=== PATIENT | female | born 1955 | race Caucasian/White ===

== ENCOUNTER → 2017-03-05 | Outpatient (CLI) | payer BC ==
[~2017-03-05] MED LIST: ARMOUR THYROID90 MG PO; ASPIRIN325 MG PO; NORCO 5-325 TA1 EACH PO; NORVASC5 MG PO; PROGESTERONE COMPOUN TOP
[2017-03-05 07:43] LABS: CREATININE 1.1 mg/dL (0.5-1.1)
== END | disposition disaster alternative care site (69) ==
LOC: GLAB 02-26 07:00 → GRAD 02-26 08:00 → GLAB 07:00
PROVIDERS: Internal Medicine Hematology & Oncology
DX: H53.129 Transient visual loss, unspecified eye (principal)

== ENCOUNTER 2017-07-06 01:31 | Inpatient (IN) | payer BC ==
[~2017-07-06] VITALS: Ht 165.1 cm; Wt 69.4 kg
--- NOTE | ~2017-07-06 | DS ---
PATIENT'S NAME: SHAHANA SELBY [facility] AGE: 62 Y [address] ROOM: [id number] [place], [place] [address] LOCATION: [facility] ADMIT DATE: 07/06/2017 Discharge Summary DISCHARGE DATE: 07/07/2017 FAMILY PHYSICIAN: PHYSICIAN, TREVIN ATTENDING PHYSICIAN: Josiah Sun DISCHARGE DIAGNOSES: 1. Seizure, primary. 2. Acute kidney injury, resolved. 3. Hypokalemia. 4. Right shoulder dislocation status post reduction by Dr. Garcia. 5. Antiphospholipid antibody syndrome. 6. Hyperthyroidism secondary to medications. 7. Mild thrombocytopenia. REASON FOR ADMISSION: Apparent seizure. LABORATORY DATA: Her initial lab showed normal white count, hemoglobin, and slightly reduced platelets. Her initial platelets were 125, dropped to 119, but never clinically significant. Her initial renal function showed a creatinine of 1.2 and BUN 21, with GFR of 61, with fluids and support that came up to 69. Sedimentation rate was 16, but CRP was elevated at 2.1. Urine was positive for opiates and I cannot tell whether that was done before or after she received opiates here. Looks like it was after, which makes sense because they gave her opiates for pain. Urine was otherwise benign. Her potassium dropped from 3.9-3.4 today, so we will have her eat a banana a day and make sure she follows up with her primary care on the hypokalemia. RADIOLOGY: Right shoulder showed a reverse Hill-Sachs fracture and degenerative changes. There is apparently posterior subluxation. The fracture did include displaced bone fragment and was apparently consistent with seizure per Dr. Sunshine. Brain and neck MRA were benign and MRI of the brain just showed changes consistent with her age, there were no acute findings. CT was done initially and showed that her C-spine was without fracture. She did have some degenerative joint disease C6 and C7. CT of the brain also showed no intracranial pathology or fracture. HOSPITAL COURSE: She was markedly improved in her discomfort when Dr. Garcia reduced her dislocation, but she continues to require some pain medication. She will be discharged today on medications per nursing med recon form. We will write a special prescription for some [place] and I have strongly encouraged her to see her primary care doctor for adjustment of her [place] Thyroid medication as she is currently at least by our laboratory hyperthyroid based on her medications. She is also to follow up with Dr. Victoria and PATIENT'S NAME: SHAHANA SELBY [facility] AGE: 62 Y [address] ROOM: [id number], [place] [address] LOCATION: [facility] ADMIT DATE: 07/06/2017 Discharge Summary DISCHARGE DATE: 07/07/2017 FAMILY PHYSICIAN: PHYSICIAN, NO ATTENDING PHYSICIAN: Josiah Sun have him let her know and everybody else whether in fact she does have lupus. There was some question about this and we would like that clarify. Her diet will be ad lukas. Activity will be as tolerated and she was told specifically not to drive for three months given this seizure history. She indicated understanding as did her spouse. She has a followup appointment in seven days with Dr. Garcia to look at that shoulder and she will need followup PT, which I am sure he will arrange. Note that time on discharge process was greater than 30 minutes. BERNA LOGAN MD CCNoreen/modl /[id number] d: 07/07/172003 t: 07/08/17 1556, DISCHARGE SUMMARY
--- NOTE | ~2017-07-06 | ECHO ---
Transthoracic Echocardiography Report (TTE) Demographics Patient Name SHAHANA SELBY Date of Study 07/06/2017 Patient Number [id number] Visit Number [id number] Date of 1955 Room Number [id number] Gender Female Number Age 62 year(s) Referring Corinne Rodriguez MD Jordan Man Josselin Lezama, Physician RT,RVT,RDCS Physician Interpreting Dana Azevedo MD Sheep Boner Physician Supervising Ordering Corinne Rodriguez MD, MD/MLP Physician Nurse Stress Softball Coach Conclusions Contractility Score Summary Normal Left Ventricular contractility was noted. Summary The estimated left ventricular ejection fraction is 65-70% with normal EF,WM and internal dimensions. There is moderate aortic regurgitation by color Doppler. There is moderate aortic stenosis by the Continuity Equation. The peak velocity is 2.9 m/s, the mean gradient is 15 mmHg, and the valve area Increased RA pressures. Procedure Type of Study TTE procedure:2D Echocardiogram, M-Mode, Doppler , Color Doppler. Procedure Date Date: 07/06/2017 Start: 07:12 AM Study Location: Inpatient Portable Technical Quality: Adequate visualization Indications:CVA. Additional Indications:Murmur. Possible seizure with fall and fractured right humerus. Appropriate Use Criteria: 9 Patient Status: Routine HR: 68 bpm BP: 161/70 mmHg M-Mode/2D Measurements LV Diastolic Dimension: 4.73 cm LV Systolic Dimension: 2.46 cm LV Septum Diastolic: 1.07 cm LV PW Diastolic: 0.83 cm AO Root Dimension: 2.3 cm Cardiac Output: 5.21 l/min AV Cusp Separation: 1.3 cm EF Estimated: 65 % LVOT: 2 cm MV EPSS: 0.3 cm LVOT VTI: 24.4 cm LV Stroke volume: 76.62 ml Doppler Measurements AV Peak Velocity: 2.92 m/s MV Peak E-Wave: 0.08 m/s AV Peak Gradient: 34.11 mmHg MV Peak A-Wave: 0.14 m/s AV Mean Gradient: 15 mmHg MV E/A Ratio: 0.56 LVOT Peak Velocity: 1.24 m/s MV P1/2t: 55 msec AV P1/2t: 439 msec TR Gradient:4.75 mmHg PV Peak Velocity: 1.21 m/s Estimated RAP:10 mmHg PV Peak Gradient: 5.86 mmHg Estimated RVSP: 15 mmHg Estimated PASP: 14.75 mmHg E' Septal Velocity: 0.09 m/s A' Septal Velocity: 0.16 m/s MV E/E' Ratio: 9.7 Findings Left Ventricle Normal left ventricle size and function. Right Ventricle Normal right ventricle structure and function. Left Atrium Normal left atrial size. Right Atrium Normal right atrial size. Increased RA pressures. Mitral Valve Normal mitral valve structure and function. Aortic Valve There is moderate aortic regurgitation by color Doppler. There is mild to moderate aortic stenosis by the Continuity Equation. The peak velocity is 2.9 m/s, the mean gradient is 15 mmHg, and the valve area based on the continuity equation is 1.5 cm2, stroke volume index is 77 ml/m2. Tricuspid Valve Normal tricuspid valve structure and function. Pulmonic Valve Normal pulmonic valve structure and function. Pericardial Effusion No evidence of pericardial effusion. Miscellaneous Visualized portions of the aortic root and ascending aorta appear normal in size. Pleural Effusion No evidence of pleural effusion. Contractility Score LV regional wall motion:(0-Non visualized 1-Normal 2-Hypokinesis 3-Akinesis 4-Dyskinesis 5-Aneurysm) Signature dtt: Jolly Cortez dtd: 07/06/17 0712 Physician Self Edit
--- NOTE | ~2017-07-06 | HP ---
PATIENT'S NAME: SHAHANA SELBY [facility] AGE: 62 Y [address] ROOM: [id number] [place], [place] [address] LOCATION: [facility] ADMIT DATE: 07/06/2017 History & Physical DISCHARGE DATE: FAMILY PHYSICIAN: PHYSICIAN, TREVIN ATTENDING PHYSICIAN: MAYANK URBANO DATE OF SERVICE: CHIEF COMPLAINT: Confusion and right shoulder pain. HISTORY OF PRESENT ILLNESS: This is a 62-year-old female who is a poor historian. I got the story directly from the patient and also her , who is somewhat also a poor historian. The story is that for the last 8 years, the patient has been told by some medical provider in [facility] probably was a neurologist, but neither the patient nor the is sure. She was told by the neurologist in the [facility] that the patient had multiple episodes of transient ischemic attack in the past on and off and there was a concern about antiphospholipid syndrome as well as systemic lupus erythematosus. However, the patient is not sure if they have ever been done any testing to confirm, but most likely, they had given that she has been told that she has these 2 problem for the last 8 years. The patient was also seen by our die reamer, Dr. Dana Dennis, for the concern for lupus and antiphospholipid syndrome, where the patient says that most likely it was confirmed, but she is not really sure and eventually the patient was referred to a metal sponge making machine operator for lupus management according to the patient. However, the patient is not reliable, neither the is reliable given that neither one of them really know the medical history that well. The story is that this morning around 1:00 a.m., the patient woke up with a right shoulder pain. She denies any recent fall or any recent trauma in the past. Due to the right shoulder pain, the patient could barely move. When she woke up at 1:00 a.m. in the morning, she also noticed that she had bitten her lips and she was bleeding slightly from the bitten lip. Eventually, she was able to get up out of the bed and walk to her who was sleeping outside in a tent given that the air conditioning at home is broken. When she reached her , her found her to be confused, where the described as the patient was answering questions, but was not answering the right answers, but the denies seeing any facial droop or any slurred speech or any muscle weakness except that the patient complained of right shoulder pain. The patient also remembered that she also had a urinary incontinence after she woke up. Because of this, the patient's brought the patient over here for evaluation. PATIENT'S NAME: HSAHANA SELBY [facility] AGE: 62 Y [address] ROOM: [place] [address] LOCATION: [facility] ADMIT DATE: 07/06/2017 History & Physical DISCHARGE DATE: FAMILY PHYSICIAN: TREVIN MELO ATTENDING PHYSICIAN: MAYANK URBANO The patient says that she has never had a seizure before and she also denies any family history of seizure. She strongly denies any trauma to the right shoulder or any recent fall. The patient was never on Coumadin; however, there was a discussion between her primary metal sponge making machine operator, Dr. iVctoria, in [place] about using Coumadin versus Plavix for her anti-phospholipid syndrome according to the patient; however, eventually did decide to stay with the Plavix, but the patient has not been taking Plavix for a while already. The patient has never had DVT or pulmonary embolism and she also denies any miscarriage when she was younger and she also denies any family history of clotting disorder. REVIEW OF SYSTEMS: As mentioned in the history of present illness. All other systems were reviewed and were negative except those mentioned in history of present illness. PAST MEDICAL HISTORY: 1. History of TIA, first time was 8 years ago and she subsequently had several times over the next few years according to the patient. 2. Hypothyroidism. 3. Probably, has history of anti-phospholipid syndrome and systemic lupus erythematosus according to the patient. ALLERGIES: NONE. HOME MEDICATIONS: The patient does not remember which medications she takes, but she states she takes aspirin and something else. Will need to be clarified with the patient's pharmacy for the home medication list. SOCIAL HISTORY: The patient is a social alcohol drinker, but she denies any alcohol abuse or any alcohol withdrawal. The patient denies any cigarette or illegal drug use. FAMILY HISTORY: Father has COPD and the mother has some kind of back problem, but she does not remember all the details. No family history of pulmonary embolism or DVT or any clotting disorder in the family. PAST SURGICAL HISTORY: Status post right knee surgery in the past. PHYSICAL EXAMINATION: VITAL SIGNS: At the time of evaluation, temperature 98.1, heart rate 74, PATIENT'S NAME: SHAHANA SELBY [facility] AGE: 62 Y [address] ROOM: [id number], [place] [address] LOCATION: [facility] ADMIT DATE: 07/06/2017 History & Physical DISCHARGE DATE: FAMILY PHYSICIAN: PHYSICIAN, NO ATTENDING PHYSICIAN: MAYANK URBANO respirations 96, blood pressure 161/70, saturation 100% on room air. GENERAL APPEARANCE: Alert and oriented x3. Currently, in no acute distress. HEENT: Pupils equally round and reactive to light. Extraocular muscles intact. Anicteric sclerae. Nasal turbinates are normal bilaterally. Dry oral mucosa. NECK: No JVD. CARDIOVASCULAR: She has a murmur, intensity about 3, the patient states this is chronic. She was told she had a can of leaky valve in the past. Regular rate and rhythm. No rubs, no gallops. RESPIRATORY: Clear to auscultation bilaterally. No rales, no rhonchi, no wheezing, no crackles. ABDOMEN: Soft, nontender, nondistended, bowel sounds present, and no hepatosplenomegaly. EXTREMITIES: She has tenderness to palpation in the right shoulder, but there is no sensation loss or numbness or muscle weakness in terms of her right hand temp recruiter showed good temp recruiter on examination. Radial pulse is also palpable, +2 on the right upper extremity. The rest of the extremities are within normal limits. No edema in upper or lower extremities. SKIN: No ulcer, no rash, no cyanosis. NEUROLOGICAL: Grossly nonfocal except that the pronator drift could not be performed in the right upper extremity due to the right shoulder fracture. Sensation intact. Muscle strength intact in the right hand with the hand temp recruiter showed good temp recruiter, but the right shoulder elevation cannot be performed due to right hip fracture. Cranial nerves 2 through 12 are unremarkable. Finger-to- nose on the left upper extremity intact. Right upper extremity, cannot perform [id number] due to the fracture on the right shoulder. Vibration and proprioception intact. No tongue deviation upon protrusion. No slurred speech. No facial droop. Visual rebollar intact. Gait not assessed due to fall risk. LABORATORY DATA: CPK 65, troponin less than 0.04. White blood cells 9.2, hemoglobin 13.6, hematocrit 39.6, platelets 145. Glucose 128, BUN 21, creatinine 1.2. Sodium 138, potassium 3.3, chloride 105, CO2 26, calcium 8.7, total protein 7.0, albumin 3.9, AST 31, ALT 31, alkaline phosphatase 94, total bilirubin 0.6, magnesium 2.2. Anion gap 10.3, INR 0.99, PTT 28, GFR 49. CK-MB 1.7. Prolactin 59.8. IMAGING STUDY: CT of the brain without contrast based on the preliminary review on admission, preliminary review was read as unremarkable. CT of the cervical spine without contrast on admission, the preliminary review was read as unremarkable. PATIENT'S NAME: SHAHANA SELBY [facility] AGE: 62 Y [address] ROOM: [id number], [place] [address] LOCATION: [facility] ADMIT DATE: 07/06/2017 History & Physical DISCHARGE DATE: FAMILY PHYSICIAN: PHYSICIAN, NO ATTENDING PHYSICIAN: MAYANK URBANO X-ray of the right shoulder and the chest, the official report is pending. Please follow up. Chest x-ray based on my review, unremarkable. Please follow up with official report in the morning. ASSESSMENT AND PLAN: 1. Regarding her encephalopathy: This could be postictal confusion from possible seizure given that the patient also had urinary incontinence when she woke up. Currently, the patient is not confused. I will consult Neurology for the encephalopathy evaluation in the morning. I will give IV Ativan 2 mg q.5 minutes p.r.n. for seizure. I will also get an electroencephalogram. Further plan will depend on clinical course. We will also get a urinalysis to rule out urinary tract infection. We will also get urine drug screen. Given the patient has a questionable history of antiphospholipid syndrome as well as systemic lupus erythematosus, I will be getting the records from the primary metal sponge making machine operator, Dr. Victoria, who has all the records. Therefore, I will get her records first to see what had been done and what had been confirmed. If the diagnosis of the antiphospholipid syndrome and the systemic lupus erythematosus are not confirmed, then we can order the diagnostic testings here in our facility. Given that the patient has had multiple transient ischemic attacks in the past with confusion that she had before at home and also with presumed history of antiphospholipid syndrome, I will be getting an MRI of the brain and also MRA of the brain and neck to rule out any possibility of stroke or looking at any blockage of the artery with MRA. Further plan will depend on clinical course. 2. Regarding her acute kidney injury. Continue with IV fluids for hydration. Check her urine electrolytes. 3. Regarding her hypokalemia: We will replace with oral potassium chloride 40 mEq x1. 4. Regarding her right shoulder fracture: The patient denies any trauma and does not remember how she got this right shoulder fracture. I will be consulting Orthopedic Surgery for further evaluation. 5. Regarding her history of murmur: The patient has been told she had a murmur from before for a leaky valve. I will get a transthoracic echo to see the extent of the valvulopathy. 6. Regarding her history of hypothyroidism: We will be checking her TSH. 7. Regarding her deep vein thrombosis prophylaxis: Compression devices for possibility of orthopedic surgery to fix the right shoulder fracture. 8. Could consider also checking UPEP and SPEP for multiple myeloma if there is no clear explanation for the fracture of the right shoulder. 9. She is a full code. Time spent in care on the day of admission 55 minutes, 10 minutes was spent on PATIENT'S NAME: SHAHANA SELBY [facility] AGE: 62 Y [address] ROOM: [id number], [place] [address] LOCATION: [facility] ADMIT DATE: 07/06/2017 History & Physical DISCHARGE DATE: FAMILY PHYSICIAN: PHYSICIAN, NO ATTENDING PHYSICIAN: MAYANK URBANO chart review, and the remainder of the time was spent in interview, physical examination, and also on counseling. The counseling includes including going over the plan of care with the patient and the patient's and I answered all their questions and concerns to their satisfaction. Both the patient and her are poor historian and do not really know much about the old medical records. Therefore, further plan will depend on clinical course once we get the medical records from the primary metal sponge making machine operator's office in the morning and the patient told me that the primary metal sponge making machine operator has all the information about her medical problems. She does not have any primary care physician that she follows with, therefore she says that most of the care that she is getting it from the metal sponge making machine operator, Dr. Victoria, in [place]. Further plan will depend on clinical course. MD CHUCK CALIX/bonny /[id number] D: [id number] T: [id number] HISTORY & PHYSICAL
--- NOTE | ~2017-07-06 | NDGEN ---
PATIENT'S NAME: SHAHANA SELBY [facility] AGE: 62 Y [address] ROOM: [address] [address] LOCATION: [facility] ADMIT DATE: 07/06/2017 Neurodiagnostics DISCHARGE DATE: FAMILY PHYSICIAN: PHYSICIAN, NO ATTENDING PHYSICIAN: MAYANK URBANO PROCEDURE: ELECTROENCEPHALOGRAM DATE OF PROCEDURE: 07/06/2017 TIME: 11:16 a.m. INDICATION: Ms. Selby is a 62-year-old female patient, who in the overnight hours had a generalized seizure likely in her bed, never had a seizure before, and she likely had a bit of postictal lethargy. This EEG was done to look at the background rhythm and look for any irritability in the EEG, such as evidence for epileptiform features such as spikes or spike-wave complexes. FINDINGS: The general background rhythm in this 20-lead EEG was completely normal showing a normal sinusoidal pattern of 9-11 hertz alpha rhythm. The amplitudes reached 30-45 microvolts, which is very normal. Any time during the recording was there any irritability in the background rhythm. No spikes or abnormal wave patterns were seen and no seizures recorded. IMPRESSION: Normal EEG. MD ABELINO VIRK/bonny /[id number] dtt: 07/24/17 1632 AL JASON R. dtd: 07/07/17 0025
--- NOTE | ~2017-07-06 | CON ---
PATIENT'S NAME: SHAHANA SELBY [facility] AGE: 62 Y [address] ROOM: [id number] [place], [place] [address] LOCATION: [facility] ADMIT DATE: 07/06/2017 Consultation DISCHARGE DATE: FAMILY PHYSICIAN: PHYSICIAN, TREVIN ATTENDING PHYSICIAN: MAYANK URBANO DATE OF CONSULTATION: 07/06/2017 The patient was seen in Neurologic consultation on 07/06/2017 at 10 p.m. HISTORY OF PRESENT ILLNESS: Ms. Selby is a 62-year-old female patient who has a prior medical history of hypothyroidism. She also holds a possible history of antiphospholipid antibody syndrome. This diagnosis seems to be given in a workup number of years ago after the patient possibly was interpreted to have abnormal MRI due to some subcortical T2 prolongation as the MRIs have always been read as nonspecific white matter changes thought to be consistent more with unidentified bright objects and not necessarily associated with any pathology of demyelinating disease, stroke, or other issues. According to the patient, she possibly has a diagnosis of systemic lupus; however, she really does not know the history concerning this and by history based on her symptoms, she denies systemic joint pain, myalgias, arthralgias etc. The patient came here after apparently she had a generalized seizure while she was sleeping. She was sleeping alone last evening in her bed as her sleeping outside in the mansfielder due to the house being very warm, but she had no problem sleeping in the house. She did say that she was under a lot of stress and fatigue with her job that day and it was a bit uncomfortable in this very warm house without any air-conditioning. She went to sleep at 10 p.m., but sometime around 1 p.m., she woke up in excruciating pain, and pain in her right shoulder with potential injury to her shoulder even dislocation. She felt very achy in her body in general and tired. She also bit her lip. The patient was taken to the emergency room for evaluation for a generalized seizure and to evaluate the right shoulder pain. It was found that the patient actually had a shoulder fracture. She denied actually falling onto the ground hitting her head or anything of that sort. Make this story as somewhat odd, the CPK which usually would be elevated in generalized seizures were completely normal in the 60s; however, in the emergency room, prolactin level was drawn and it was elevated into the high 50s and then repeated again during the later part of the day and came back to normal. This is a fairly sensitive test for generalized seizure, which recently had taken place within the past 2 hours, it was properly taken at that time. I am seeing the patient currently and she is in no acute distress. She does not complain about any headache or neck pain. There is no bruising of her head. There is no bruising on her body that is obvious. Her right arm is in a mobilize device and was placed by Orthopedic Surgery presently. The patient asked exactly as PATIENT'S NAME: SHAHANA SELBY [facility] AGE: 62 Y [address] ROOM: [address] [address] LOCATION: [facility] ADMIT DATE: 07/06/2017 Consultation DISCHARGE DATE: FAMILY PHYSICIAN: PHYSICIAN, NO ATTENDING PHYSICIAN: MAYANK URBANO to why she had a seizure and we went over the possible etiologies for generalized seizures and the biggest one would be medication withdrawal. The patient absolutely denies that she is on any medications other than taking a vitamin. She may be on 1 to 2 medicines that she is not aware of it, she is somewhat of a poor historian, and seems to depend on her to know her medicines oddly. We will check with the concerning any particular medication that may have had essential nervous system potential for withdrawal; however, I went over the whole list of medications as well as alcohol that could have caused in a withdrawal seizure and she absolutely denies alcohol history or any of the medications that I mentioned. The patient currently has no complaints, but she is concerned about a potential possible surgery for her arm. Answers all questions appropriately presently. She had not been placed on any antiseizure medication, but since the first- time event, we currently get more information concerning her history and workup for her brain imaging. CURRENT MEDICATIONS: Include: 1. Thyroid replacement 1.5 g q.a.m. 2. Aspirin 325 mg daily. 3. Amlodipine 5 mg p.o. daily. ALLERGIES: NO KNOWN DRUG ALLERGIES. SOCIAL HISTORY: The patient absolutely denies any alcohol use, only on rare occasion. She denies any tobacco use. She denies any marijuana use. She denies any illicit drug use. PAST SURGICAL HISTORY: None in the past. PAST MEDICAL HISTORY: She states that she has some cognitive impairment and short-term memory loss possibly related to what she was told being antiphospholipid antibody syndrome. She apparently has not been treated with anticoagulation, has not been confirmed all the pieces of the puzzle exist that she has this true syndrome. She denies any history of deep vein thrombosis. She denies any miscarriages. Denies any history suggestive of rheumatoid arthritis or any rheumatological diseases that may be suggestive such as an SLE. SLE would not necessarily be needed for the diagnosis of antiphospholipid antibody syndrome. REVIEW OF SYSTEMS: The patient likely had a generalized seizure, quite violent, would have to be PATIENT'S NAME: SHAHANA SELBY [facility] AGE: 62 Y [address] ROOM: [id number] [address] LOCATION: [facility] ADMIT DATE: 07/06/2017 Consultation DISCHARGE DATE: FAMILY PHYSICIAN: PHYSICIAN, NO ATTENDING PHYSICIAN: MAYANK URBANO the story here that she actually either dislocated her shoulder as well as breaking as well as fracturing the humerus. She denied completely that she fell out of bed and she really does not know any more and that she just remembers waking up and being very fatigued and going out to her who is out in a camper as she was sleeping in the house due to the house having no air-conditioning. PHYSICAL EXAMINATION: GENERAL: This is a healthy-appearing female in no acute distress. VITAL SIGNS: Revealed a pulse of 77, respiration 18, blood pressure 174/76, temperature 36.8, and weight is 67.5 kg. NEUROLOGIC: Cranial nerves 2 through 12 was intact. Motor exam revealed 5/5 power in the lower extremities as well as the left upper extremity 5/5 power. Unable to test power in the right upper extremity as it is immobilized. She has normal sensory exam to light touch. She follows all commands when appropriately. [id number] testing on the left hand was completely intact. She had no visual field deficits. Her neck is supple on flexion and extension. I did not notice any bruising of the skin. I did not notice where she had bit her lip as she has stated. IMPRESSION: Ms. Selby is a 62-year-old female patient, never had a seizure before, she supposedly had an event where she woke up in excruciating pain at 1 o'clock in the morning, as well as being confused and altered mental status. She says that she was sleeping alone as her was out in the camper due to lack of having air-conditioning in the house. A workup of her right upper extremity reveals a humeral fracture of the anterior humeral head and displaced bone fragment along the anterior-inferior joint line. Humeral head was posteriorly subluxed and likely dislocated. A repeat right shoulder film later in the day after the Orthopedic Surgeon came and saw the patient at the bedside and did a closed reduction of this posterior dislocation successfully the presence of the impacted fracture was noted on the x-ray still at the area of the anterior humeral head. Certainly, the patient could have had a seizure and have caused a dislocation though I have never really witnessed the patient having a true fracture of their arm without falling out of bed, unless it is certainly possible, why she had a seizure is a mystery. Denies any medications that would be cause for withdrawal seizure. She did not have any episodes of seizures during the day, which we chose to keep the patient off antiseizure medications. The review of her MRI is unchanged from the prior MRIs done last year in a number of years ago. It shows multiple areas of T2 prolongation in the subcortical region. According to the radiologist whom I discussed, these do appear to be just unidentified bright objects without much etiology, do not necessarily point to ischemic strokes or demyelination, the pattern suggesting of just small vessel ischemic changes. The connection with antiphospholipid antibody syndrome to the findings on the brain could not PATIENT'S NAME: SHAHANA SELBY [facility] AGE: 62 Y [address] ROOM: [id number] [place], [place] [address] LOCATION: [facility] ADMIT DATE: 07/06/2017 Consultation DISCHARGE DATE: FAMILY PHYSICIAN: PHYSICIAN, NO ATTENDING PHYSICIAN: MAYANK URBANO directly be made as far as I am concerned. The only issue I have is does she have a true diagnosis of systemic lupus. She really has very poor insight and her memory is somewhat poor. Perhaps, she does have a diagnosis from the linoleum layer helper of lupus. It is not out of the question that somebody could have a presentation of a generalized seizure with systemic lupus erythematosus even without having any other symptoms. This could be seen at the start of a lupus type presentation. It is unknown as to why persons would have generalized seizures with systemic lupus erythematosus. Again, the questionable history of this and we are not even sure if she has a firm diagnosis for this. We will try to get some more information from the family and perhaps we could get further information from her linoleum layer helper. MD ABELINO VIRK/bonny /[id number] d: 07/07/17 0058 t: 07/24/17 1635, CONSULTATION REPORT
--- NOTE | ~2017-07-06 | OR ---
PATIENT'S NAME: SHAHANA SELBY [facility] AGE: 62 Y [address] ROOM: [place] [address] LOCATION: [facility]ICU ADMIT DATE: 07/06/2017 OR/Procedure Report DISCHARGE DATE: 07/07/2017 FAMILY PHYSICIAN: PHYSICIAN, NO ATTENDING PHYSICIAN: Josiah Sun SURGEON: Carlyle Garcia MD GOVERNMENT INSTRUCTOR: DATE OF PROCEDURE: 07/06/2017 POSTOPERATIVE DIAGNOSIS: Right shoulder posterior dislocation with associated lesser tuberosity fracture and large reverse Hill-Sachs lesion. POSTOPERATIVE DIAGNOSIS: Right shoulder posterior dislocation with associated lesser tuberosity fracture and large reverse Hill-Sachs lesion. PROCEDURE PERFORMED: Closed reduction of right shoulder posterior dislocation under anesthesia with application of shoulder immobilizer (gunslinger type). ANESTHESIA: Propofol. COMPLICATIONS: None. INDICATION FOR PROCEDURE: Please refer to the separately dictated consultation note. The patient and her were informed of the potential for propagation of the preexisting fracture, recurrent posterior instability, and potential need for surgical stabilization (including the potential need for salvage with hemiarthroplasty versus total shoulder arthroplasty). Informed consent granted. DESCRIPTION OF PROCEDURE: With the patient positioned supine in her hospital bed, propofol anesthesia was administered. A combination of longitudinal traction followed by lateral distraction of the proximal humerus and exaggeration of internal rotation followed by gentle external rotation was applied. The posteriorly displaced deformity dissipated immediately, and there was no residual deformity and no crepitation with range of motion. Surprisingly, I was able to internally rotate the forearm to the abdomen with the arm at the side without recurrent posterior subluxation. There was no crepitation with range of motion, and there was no residual deformity. Minimal force was required. Next, a shoulder immobilizer was placed in a gunslinger position. Postreduction radiographs were ordered. Minimal force was required. PATIENT'S NAME: SHAHANA SELBY [facility] AGE: 62 Y [address] ROOM: [place] [id number] LOCATION: [facility]ICU ADMIT DATE: 07/06/2017 OR/Procedure Report DISCHARGE DATE: 07/07/2017 FAMILY PHYSICIAN: , NO ATTENDING PHYSICIAN: Josiah Sun MD TELLO WELCH/bonny /[id number] d: 07/06/17 2356 t: 07/16/17 1313, OPERATIVE SUMMARY
--- NOTE | ~2017-07-06 | ER ---
PATIENT'S NAME: SHAHANA SELBY [facility] AGE: 62 Y [address] ROOM: [id number] [place], [place] [address] LOCATION: [facility] ADMIT DATE: 07/06/2017 ER/Outpatient Report DISCHARGE DATE: FAMILY PHYSICIAN: PHYSICIAN, NO ATTENDING PHYSICIAN: MAYANK URBANO Time of Arrival: 0132 hours. Time of Evaluation: 0132 hours. CHIEF COMPLAINT: Altered mental status. HISTORY OF PRESENT ILLNESS: The patient is a 62-year-old female, who presents to emergency department today with chief complaint of altered mental status and right shoulder pain. She reports this started this evening. Apparently, she woke up with right shoulder pain; she is unsure what happened. She also had blood coming from her lip. Apparently, she went outside the camper where her was sleeping, and she was confused. She did not know what happened. She did not know where she was at. She denies any slurring of speech. She did have one episode of vomiting. She denies any chest pain. No shortness of breath. About the time she got here, she feels more normal. She just has no idea what happened. PAST MEDICAL HISTORY: TIAs, she reports short-term memory loss from "lack of blood flow to the outer brain." PAST SURGICAL HISTORY: None reported. SOCIAL HISTORY: The patient denies any tobacco use. Reports occasional alcohol use. Denies any illicit drug use. ALLERGIES: NO KNOWN DRUG ALLERGIES. MEDICATIONS: Please see list. PRIMARY CARE DOCTOR: Dr. Victoria in [place]. REVIEW OF SYSTEMS: PATIENT'S NAME: SHAHANA SELBY [facility] AGE: 62 Y [address] ROOM: [id number] [place], [place] [address] LOCATION: [facility] ADMIT DATE: 07/06/2017 ER/Outpatient Report DISCHARGE DATE: FAMILY PHYSICIAN: PHYSICIAN, NO ATTENDING PHYSICIAN: MAYANK URBANO All systems are reviewed by myself and are negative with the exception of those discussed in the HPI and past medical history. PHYSICAL EXAMINATION: VITAL SIGNS: Blood pressure 167/72, pulse 76, respiratory rate 18, temperature 97.2, oxygen saturation 98% on room air. GENERAL: The patient is a 62-year-old female, who appears stated age. She appears in mild acute distress secondary to pain in the right shoulder. HEENT: Head: Normocephalic. Does have evidence of trauma to her lower lip. There are no open lacerations, just some superficial lacerations to lip, nothing gaping. Pupils are equal, round, and reactive to light and accommodation. Extraocular motions are intact. Nares are patent bilaterally. TMs are clear. NECK: Supple. There is no midline tenderness to palpation. No step-offs or deformities. CARDIOVASCULAR: Regular rate and rhythm. No murmurs, rubs, or gallops. LUNGS: Clear to auscultation bilaterally. No wheezes, rales, or rhonchi. ABDOMEN: Soft, nontender, and nondistended. No rebound, rigidity, or guarding. MUSCULOSKELETAL: The patient has tenderness to palpation of the right upper extremity shoulder area, decreased range of motion. She does have some numbness, tingling to the hand. She is neurovascularly intact. 2/4 pulses in radial pulse. NEUROLOGICAL: GCS 15. Alert and oriented x4. Cranial nerves 2 through 12 are grossly intact. No clonus. 2/4 reflexes. SKIN: Warm and dry. LABORATORY DATA AND X-RAYS: EKG is obtained, is interpreted by myself at 0147 hours shows sinus rhythm with a rate of 66, normal axis, normal interval. No ST elevation, ST depression, T-wave inversion. CBC is unremarkable. Coags are normal. CT scan of the head shows no acute process. CT scan of the C-spine shows no acute process. CMP unremarkable. LFTs are normal. Magnesium is normal. Cardiac enzymes are normal. Prolactin is elevated at 59.8. Chest x-ray shows no acute process. Right shoulder shows a fracture of the humeral head. IMPRESSION: 1. Acute altered mental status, seizure versus syncope versus transient ischemic attack versus other. 2. Acute right closed humeral head fracture. 3. Initial visit. EMERGENCY DEPARTMENT COURSE: The patient was brought back to the examination room. Seen and evaluated by myself. IV is established. Laboratory analysis and imaging are obtained as PATIENT'S NAME: SHAHANA SELBY [facility] AGE: 62 Y [address] ROOM: [id number] [place] [address] LOCATION: [facility] ADMIT DATE: 07/06/2017 ER/Outpatient Report DISCHARGE DATE: FAMILY PHYSICIAN: PHYSICIAN, NO ATTENDING PHYSICIAN: MAYANK URBANO described above. The patient was given morphine 2 mg IV as well as a liter of normal saline. She was given another 0.5 mg of Dilaudid IV with improvement in the patient's pain. She was given 4 mg Zofran IV. I have discussed results with the patient and her at the bedside. With the symptoms that she describes, I have recommended admission to the hospital for further evaluation, treatment, and management. I have contacted Dr. Urbano. He does agree to accept the patient for further evaluation, treatment, and management. DISPOSITION: The patient is admitted under the care of Dr. Urbano in stable condition. DO IVETTE DURAN/modl /[id number] d: 07/06/17 0348 t: 07/13/17 1110, OUTPATIENT REPORT
--- NOTE | ~2017-07-06 | CON ---
PATIENT'S NAME: SHAHANA SELBY [facility] AGE: 62 Y [address] ROOM: [id number] [place], [place] [address] LOCATION: GICU ADMIT DATE: 07/06/2017 Consultation DISCHARGE DATE: FAMILY PHYSICIAN: PHYSICIAN, NO ATTENDING PHYSICIAN: JOSIAH URBANO DATE OF CONSULTATION: 07/06/2017 HISTORY OF PRESENT ILLNESS: Dr. Urbano has requested that I provide an inpatient consultation on this 62- year-old female. I have been asked to evaluate and treat her right shoulder pain. The patient awoke in the middle of the night, dazed and confused with right shoulder pain. She noted that she had been incontinent of urine and that she was bleeding from her lip. She has no history of prior difficulty with her right shoulder (discomfort or dysfunction). She notes that she has been unable to move her shoulder. She has been admitted to the hospital with a presumptive diagnosis of having experienced a seizure. She denies history of prior seizure. She denies pain elsewhere as a result of the incident. She notes partially decreased sensation to light touch throughout her right hand. Her past medical history, present medications, and allergies are otherwise as specified on her chart (which I have completely reviewed). PHYSICAL EXAMINATION: GENERAL: Alert, oriented, well-hydrated, well-nourished, pleasant, cooperative female, who is in no distress. EXTREMITIES: The humeral head is palpable in a posteriorly subluxated position. There is tenderness at the anterior and posterior aspects of the right shoulder. There is no swelling or visible deformity at the right shoulder. There is significant pain with even the slightest gentle range of motion of the right shoulder. She holds her shoulder and internally rotated and adducted position. I did not attempt to force the shoulder out of this position. There is no swelling, tenderness, or deformity at the right elbow or the right wrist. 1+ radial pulse. There is no edema at the right forearm or wrist or hand. Sensation to light touch is present, but subjectively decreased at all 5 digits in the right hand. State Inspector strength and digital abduction motor strength and wrist extension motor strength are all 4/5. RADIOGRAPHS: AP and scapular Y-views of the right shoulder demonstrate that the humeral head is in a posteriorly subluxated position. There appears to be a lesser tuberosity fracture on the AP view. The appearance is suggestive of a posterior dislocation. PATIENT'S NAME: SHAHANA SELBY [facility] AGE: 62 Y [address] ROOM: [address] [address] LOCATION: [facility] ADMIT DATE: 07/06/2017 Consultation DISCHARGE DATE: FAMILY PHYSICIAN: PHYSICIAN, NO ATTENDING PHYSICIAN: JOSIAH URBANO I therefore ordered a CT scan, which demonstrates a very large Hill-Sachs deformity with posterior dislocation of the humeral head and an intraarticular impacted fracture involving the lesser tuberosity and anterior articular surface of the humeral head. The fracture involves approximately 25% of the humeral head articular surface. IMPRESSION: Posterior fracture dislocation of right shoulder. Idiopathic seizure, resulting in the above. RECOMMENDATIONS: I recommended and performed a closed reduction. Examination under anesthesia was satisfactory postreduction. Such that, I am optimistic regarding the potential to treat this nonoperatively. She was placed into a gunslinger-type brace with strict instructions to avoid range of motion. Postreduction radiographs are pending. I have informed the patient and her that surgical stabilization could conceivably be necessary and that salvage with shoulder arthroplasty could conceivably be necessary. I have asked them to contact me immediately if she experiences significant recurrent right shoulder discomfort. MD KRISTIN WELCHW/terel /[id number] CC: Josiah Urbano MD d: 07/07/17 0012 t: 07/16/17 1311, CONSULTATION REPORT
[2017-07-06 02:03] LABS: BASOPHIL # 0.1 K/uL (0.0-0.2); BASOPHIL % 0.7 %; EOSINOPHIL # 0.1 K/uL (0.0-0.5); EOSINOPHIL % 1.5 %; HEMATOCRIT 39.6 % (33.0-46.0); HEMOGLOBIN 13.6 g/dL (10.0-15.0); IMMATURE GRANULOCYTE % 0.4 %; LYMPHOCYTE # 1.2 K/uL (0.8-4.0); LYMPHOCYTE % 12.7 %; MCH 28.5 pg (27.0-34.0); MCHC 34.3 gm/dL (32.0-36.5); MONOCYTE # 0.7 K/uL (0.0-1.0); MONOCYTE % 7.3 %; MPV 9.7 fl (9.4-12.4); NEUTROPHIL # (ANC) 7.1 K/uL (1.8-7.8); NEUTROPHIL % 77.4 %; NRBC % 0 /100WBC (0-0.00); PLATELET COUNT 145 K/uL (150-450); RBC 4.77 M/uL (3.50-5.50); RDW-CV 13.4 % (11.9-14.6); WBC 9.2 K/uL (4.0-11.0)
[2017-07-06 02:12] LABS: INR - (THERAPEUTIC) 0.99 (0.92-1.07); PROTIME 10.4 SECONDS (9.8-11.4); PTT 28 SECONDS (25-32)
[2017-07-06 02:22] LABS: ALBUMIN 3.9 gm/dL (3.5-5.0); ALK PHOS 94 IU/L (33-138); ALT 31 IU/L (12-78); ANION GAP 10.3 (10.0-19.0); AST 31 IU/L (10-40); BLOOD UREA NITROGEN 21 mg/dL (6-24); CALCIUM 8.7 mg/dL (8.5-10.5); CHLORIDE 105 mMol/L (96-110); CO2 26 mMol/L (22-32); CPK 65 IU/L (21-215); CREATININE 1.2 mg/dL (0.5-1.1); MAGNESIUM 2.2 mg/dL (1.8-2.6); POTASSIUM 3.3 mMol/L (3.7-5.1); SODIUM 138 mMol/L (135-145); TOTAL BILIRUBIN 0.6 mg/dL (0.0-1.5)
--- NOTE | 2017-07-06 04:37 | NUR ---
PATIENT WAS SLEEPING IN BED AND WOKE UP TO SEVERE R) SHOULDER PAIN BUT DOES NOT RECALL FALLING OUT OF BED AND IS UNSURE OF HOW THE SHOULDER PAIN CAME ABOUT. PATIENT WENT TO GET AND NOTED PATIENT COULDN'T RECALL THE MONTH AND YEAR AND WAS CONFUSED. DROVE PATIENT TO [facility] ED. IN THE ER R) HUMERUS FRACTURE WAS FOUND. PATIENT ADMITTED FOR ALTERED MENTAL STATUS. NO KNOWN ALLERGIES. SIGNIFICANT HISTORY OF TIAs AND ALTERED MENTAL STATUS DUE TO PREVIOUS DIAGNOSIS OF LACK OF BLOOD FLOW TO OUTER BRAIN. L) WRIST IV STARTED IN ER.
[2017-07-06 06:12] LABS: BILIRUBIN URINE NEGATIVE (NEGATIVE); BLOOD URINE NEGATIVE /UL (NEGATIVE); COLOR URINE YELLOW (YELLOW); GLUCOSE URINE NEGATIVE (NEGATIVE); KETONE URINE 50 mg/dL (NEGATIVE); LEUKOCYTES URINE 100 /UL (NEGATIVE); NITRITE URINE NEGATIVE (NEGATIVE); PROTEIN URINE NEGATIVE (NEGATIVE); TURBIDITY URINE CLEAR (CLEAR); UROBILINOGEN URINE NORMAL (NORMAL)
[2017-07-06 06:19] LABS: RBC URINE NEGATIVE #/HPF (NEGATIVE)
[2017-07-06 06:20] LABS: BACTERIA URINE NEGATIVE (NEGATIVE); EPITHELIAL URINE RARE #/HPF (NEGATIVE)
[2017-07-06 06:32] LABS: BARBITURATE NEGATIVE (NEGATIVE); COCAINE NEGATIVE (NEGATIVE); OPIATES POSITIVE (NEGATIVE)
--- NOTE | 2017-07-06 06:35 | NUR ---
Shift Summary: PATIENT A&Ox3. FORGETFUL AT TIMES. DENIES N/T AND HEADACHE. VSS. NO EDEMA NOTED. SBP 161. PULSES 2+. CSM WNL ON R) ARM. 2+ PULSE, GOOD CAPILLARY REFILL, NORMAL SENSATION. SCATTERED BRUISES ON LEGS AND R) ARM. BOWEL SOUNDS ACTIVE. LAST BM TWO DAYS AGO. PATIENT IS ON ROOM AIR WITH CLEAR LUNGS. MORPHINE 1MG GIVEN FOR PAIN.
[2017-07-06 06:49] LABS: AMPHETAMINE NEGATIVE (NEGATIVE)
[2017-07-06 08:04] LABS: HEMOGLOBIN 13.1 g/dL (10.0-15.0); MCH 28.7 pg (27.0-34.0); MCHC 34.5 gm/dL (32.0-36.5); MCV 83.2 fl (83.0-98.0); MPV 9.5 fl (9.4-12.4); RBC 4.57 M/uL (3.50-5.50); RDW-CV 13.4 % (11.9-14.6); WBC 9.5 K/uL (4.0-11.0)
[2017-07-06 08:17] LABS: ANION GAP 9.8 (10.0-19.0); CALCIUM 8.6 mg/dL (8.5-10.5); POTASSIUM 3.8 mMol/L (3.7-5.1)
[2017-07-06] MEDS ORDERED: ASPIRIN325 MG PO (12:02)
[2017-07-06] MEDS ORDERED: NORVASC5 MG PO (15:52)
[2017-07-06] MEDS ORDERED: ARMOUR THYROID90 MG PO (15:53)
[2017-07-06] MEDS ORDERED: PROGESTERONE COMPOUN TOP (15:58)
--- NOTE | 2017-07-06 16:33 | NUR ---
Significant Event: Patient alert and oriented x3. Seizure precautions. Pupils 4mm, brisk. Denies numbness/tingling. Neuro consult called to , said will be up to see patient. Radial pulse 2+ to R) wrist. at patient bedside this afternoon with ag service manager to do closed reduction of R) shoulder under moderate sedation. Hypertensive, all other VSS on room air. ECHO done this shift. Carotid dopplers still need done. Voids per bathroom. Scattered bruising noted. R) shoulder immobilizer will be in place after closed reduction. Morphine given for pain with relief noted. IV to L) wrist infusing NS at 150 mL/hr. Follow up: Neuro consult. 1PA to bathroom. NPO for now.
[2017-07-07 04:36] LABS: ALBUMIN 3.4 gm/dL (3.5-5.0); ANION GAP 10.2 (10.0-19.0); CALCIUM 8.4 mg/dL (8.5-10.5); CREATININE 0.9 mg/dL (0.5-1.1); PHOSPHORUS 3.3 mg/dL (2.5-4.9); POTASSIUM 4.2 mMol/L (3.7-5.1)
--- NOTE | 2017-07-07 06:46 | NUR ---
Significant Event: A/Ox3. Follows commands and denies numbness/tingling. Closed reduction of right shoulder done yesterday and right shoulder is in immobilizer. Ambulates 1A with gait belt. 1 [place] given for pain prn q4h. Neuro consult done yesterday. Follow up:
[2017-07-07] MEDS ORDERED: NORCO 5-325 TA1 EACH PO (15:58)
--- NOTE | 2017-07-07 19:20 | NUR ---
Patient dc'd to home with her . Dismissal instructions given and patient and verbalized understanding. Patient instructed to keep right should immobilizer on at all times. Order that patient may shower without her brace on but she needs to maintain alignment of her shoulder. Occupational and physical therapy worked with the patient on showering and dressing and ambulating in the hallways. Patient instructed to call Dr. Jiménez office on Sunday and schedule an appointment for Sunday afternoon. Patient taken out to her vehicle and no further concerns.
== END 2017-07-07 16:35 | disposition disaster alternative care site (69) | DRG 101 ==
LOC: GMED 01:31 → GICU 02:59
PROVIDERS: Emergency Medicine; Family Medicine; ADMIT Internal Medicine
PROC: 0PSCXZZ Reposition Right Humeral Head, External Approach (ICD-10-PCS; principal; 2017-07-06)
DX: G40.89 Other seizures (principal); N17.9 Acute kidney failure, unspecified; D69.6 Thrombocytopenia, unspecified; S42.201A Unspecified fracture of upper end of right humerus, initial encounter for closed fracture; E87.6 Hypokalemia; E78.5 Hyperlipidemia, unspecified; W18.30XA Fall on same level, unspecified, initial encounter
CPT/HCPCS: A9577; J1170; J2270; J2405; J7030